=== PATIENT | female | born 1995 | race Caucasian/White ===

== ENCOUNTER → 2017-03-04 | Outpatient (CLI) | payer OTHER ==
[~2017-03-04] MED LIST: BACL10TA PO; ESCI10TA PO; HYOS0.1283 SL; KETO10TA PO; L.AC1CAP6 PO; MULT1TAB69 PO; ONDA4TAB8 PO; TRZ50T PO
--- NOTE | 2017-03-04 16:05 | Diagnostic Imaging Report ---
PROCEDURE: CT head without contrast. TECHNIQUE: Multiple contiguous axial images were obtained through the brain without the use of intravenous contrast. INDICATION: Altered mental status. FINDINGS: There is no intracranial hemorrhage, edema, or mass effect. The brain parenchyma appears unremarkable. The ventricles are not dilated. No extra-axial fluid collection is seen. The calvarium and the visualized portions of the paranasal sinuses and orbits appear grossly unremarkable. IMPRESSION: Unremarkable exam. Dictated by: Dictated on workstation # [id number]
== END ==
LOC: RAD 09:08
PROVIDERS: ATTEND Nurse Practitioner Primary Care
DX: R40.4 Transient alteration of awareness (principal); H53.9 Unspecified visual disturbance
CPT/HCPCS: 70450

== ENCOUNTER 2017-05-11 08:12 | Emergency (ER) | payer OTHER ==
[~2017-05-11] VITALS: Ht 154.9 cm; Wt 56.7 kg
--- NOTE | 2017-05-11 08:35 | ED EENT ---
History of Present Illness General Chief Complaint: Oral/Throat Problems Stated Complaint: THROAT CLOSING UP Source: patient, other Exam Limitations: no limitations History of Present Illness Time seen by provider: 08:25 Initial Comments Patient has ER by private conveyance with chief complaint of one day progressively worsening sore throat. She is able to drink but has poor appetite. She had some nausea this morning but none presently. She is not having any cough, shortness of breath, chest pain, fevers, chills. She denies rhinorrhea or ear pain. Allergies and Home Medications Allergies Coded Allergies: No Known Drug Allergies (Unverified , 04/06/15) Home Medications Baclofen 10 Mg Tablet, 10 MG PO Q6H PRN for hiccups, (Reported) Escitalopram Oxalate 10 Mg Tablet, 10 MG PO DAILY, (Reported) L.acidoph & ParacaseiB.lactis 1 Each Capsule, 1 EACH PO HS, (Reported) Multivitamin 1 Each Tablet, 1 EACH PO HS, (Reported) Trazodone Hcl 50 Mg Tab, 50 MG PO HS, (Reported) Review of Systems Constitutional: No chills, No fever Eyes: Denies Drainage, Denies Inflammation, Denies Pain Ears: Denies Dizziness, Denies Pain Nose: denies congestion, denies clear discharge Mouth: purulent discharge, other (pharyngeal erythema) Throat: denies neck stiffness, denies hoarse, painful swallowing Respiratory: No cough, No short of breath Gastrointestinal: nausea, No vomiting Past Fviwnuj-Hemlnb-Yzmggr Hx Patient Social History Alcohol Use: Denies Use Recreational Drug Use: No Smoking Status: Never a Smoker Recent Foreign Travel: No Contact w/Someone Who Travel: No Reproductive System Hx Reproductive Disorders: No Sexually Transmitted Disease: No Gastrointestinal Gastrointestinal Disorders: Chronic Constipation Physical Exam General Appearance: WD/WN, no apparent distress Eyes: bilateral eye normal inspection, bilateral eye PERRL, bilateral eye EOMI Ears: bilateral ear auricle normal, bilateral ear canal normal, bilateral ear TM normal Nose: normal inspection, No discharge Mouth/Throat: tonsillar exudate, tonsillar swelling Neck: non-tender, supple, lymphadenopathy (R), lymphadenopathy (L) (shotty bilateral) Cardiovascular: normal peripheral pulses, regular rate, rhythm Respiratory: no respiratory distress, no accessory muscle use Neurologic/Psychiatric: alert, oriented x 3 Skin: normal color, warm/dry Progress/Results/Core Measures Results/Orders Lab Results Laboratory Tests Test 05/11/17 08:22 Range/Units Group A Streptococcus Screen NEGATIVE NEGATIVE My Orders Orders - LES IQBAL Rapid Strep A Screen (05/11/17 08:28) Departure Impression Impression: Primary Impression: Acute viral pharyngitis Disposition: 01 HOME, SELF-CARE Condition: Stable Departure-Patient Inst. Decision time for Depature: 08:48 Referrals: NO,LOCAL PHYSICIAN (PCP/Family) Primary Care Physician Patient Instructions: Viral Pharyngitis (DC) Add. Discharge Instructions: Drink plenty of fluids. Use salt water gargles, honey, Chloraseptic sprays for the swollen/sore throat. Use 1000 g Tylenol, 800 mg ibuprofen for the fever, body aches/headaches. Follow up with your primary care physician if this lasts longer than 10-14 days. Vapor rubs and humidifiers will help with the congestion. All discharge instructions reviewed with patient and/or family. Voiced understanding. LES IQBAL May 11, 2017 08:35
[2017-05-11 08:54] VITALS: BP 109/60
== END 2017-05-11 08:54 | disposition home or self-care (01) ==
LOC: EDUNIT# 08:12 → ER 08:14
DX: J02.9 Acute pharyngitis, unspecified (principal)
CPT/HCPCS: 87430; 99282

== ENCOUNTER → 2020-07-13 | Outpatient (CLI) | payer OTHER ==
[~2020-07-13] MED LIST changes: +MULT-567 PO; -MULT1TAB69 PO
== END ==
LOC: LABNPT 09:44
PROVIDERS: ATTEND Family Medicine
DX: J02.9 Acute pharyngitis, unspecified (principal); Z20.822 Contact with and (suspected) exposure to COVID-19
CPT/HCPCS: 87635

== ENCOUNTER 2022-05-26 09:20 | Emergency (ER) | payer OTHER ==
[~2022-05-26] VITALS: Ht 154.9 cm; Wt 58.9 kg
[2022-05-26] MEDS ORDERED: NS IV 1000 ML 1,000 ML IV STA (09:40)
[2022-05-26 09:52] LABS: BASOPHILS % (AUTO) 1 % (0-10); BILIRUBIN,URINE NEGATIVE (NEGATIVE); CLARITY,URINE CLOUDY; COLOR,URINE YELLOW; EOSINOPHILS # (AUTO) 0.1 10^3/uL (0.0-0.3); EOSINOPHILS % (AUTO) 2 % (0-10); GLUCOSE, URINE (UA) NEGATIVE (NEGATIVE); HEMATOCRIT 41 % (35-52); KETONES,URINE TRACE (NEGATIVE); LEUKOCYTE ESTERASE ,URINE NEGATIVE (NEGATIVE); LYMPHOCYTES # (AUTO) 2.9 10^3/uL (1.0-4.0); LYMPHOCYTES % (AUTO) 44 % (12-44); MEAN CORPUSCULAR HEMOGLOBIN 31 pg (25-34); MEAN CORPUSCULAR HGB CONC 34 g/dL (32-36); MEAN CORPUSCULAR VOLUME 89 fL (80-99); MEAN PLATELET VOLUME 10.5 fL (9.0-12.2); MONOCYTES # (AUTO) 0.6 10^3/uL (0.0-1.0); MONOCYTES % (AUTO) 10 % (0-12); NEUTROPHILS # (AUTO) 2.9 10^3/uL (1.8-7.8); NEUTROPHILS % (AUTO) 44 % (42-75); NITRITE,URINE NEGATIVE (NEGATIVE); PLATELET COUNT 280 10^3/uL (130-400); PROTEIN,URINE TRACE (NEGATIVE); WHITE BLOOD COUNT 6.5 10^3/uL (4.3-11.0)
[2022-05-26 10:00] LABS: BACTERIA,URINE TRACE /HPF; SQUAMOUS EPITHELIAL CELL,UR 0-2 /HPF
[2022-05-26 10:02] LABS: ALBUMIN 4.3 GM/DL (3.2-4.5); POTASSIUM 3.3 MMOL/L (3.6-5.0)
--- NOTE | 2022-05-26 10:03 | ED Abdominal Pain ---
General Chief Complaint: Abdominal/GI Problems Stated Complaint: SEVERE ABDOMINAL PAIN Source of Information: Patient Exam Limitations: No Limitations History of Present Illness Date Seen by Provider: May 26, 2022 Time Seen by Provider: 09:31 Initial Comments Here with right lower quadrant abdominal pain that radiated to the right flank and was 10 out of 10 at its worse and aching and now only 8 out of 10. She had similar feeling on Friday that she rested through and it went away yesterday but came back this morning. Did have some nausea twice this morning without significant vomiting. Denies diarrhea. Last normal bowel movement yesterday. Denies vaginal discharge or bleeding. Denies dysuria. No reports of fever or chills. She is not sure if she is or not although they have been trying for 2-1/2 years unsuccessfully so she does not believe she is. Last normal menstrual period was on 04/28/2022. Timing/Duration: 2-3 Days, Changing Over Time, Intermittent Severity/Quality: Moderate, Severe, Aching Location: RLQ Radiation: Flank (Right) Activities at Onset: None Modifying Factors: Worsens With Movement Associated Symptoms: No Back Pain, No Chest Pain, No Fever/Chills; Nause a/Vomiting; No Swelling/Mass in Abdomen, No Weakness Allergies and Home Medications Allergies Coded Allergies: No Known Drug Allergies (Unverified , 04/06/15) Patient Home Medication List Home Medication List Reviewed: Yes Baclofen (Baclofen) 10 Mg Tablet, 10 MG PO Q6H PRN for hiccups, (Reported) Entered as Reported by: BETTY KUMAR on 01/25/16 1041 Escitalopram Oxalate (Lexapro) 10 Mg Tablet, 10 MG PO DAILY, (Reported) Entered as Reported by: BETTY KUMAR on 01/25/16 1041 L.acidoph & Paracasei,B.lactis (Probiotic) 1 Each Capsule, 1 EACH PO HS, (Reported) Entered as Reported by: BETTY KUMAR on 01/25/16 1041 Multivitamin (Multivitamins) 1 Each Tablet, 1 EACH PO HS, (Reported) Entered as Reported by: BETTY KUMAR on 01/25/16 1041 Trazodone Hcl (Desyrel 50 Mg) 50 Mg Tab, 50 MG PO HS, (Reported) Entered as Reported by: GISEL MERCADO on 04/06/15 0421 Review of Systems Review of Systems Constitutional: see HPI; No chills, No fever EENTM: No Symptoms Reported Respiratory: Denies Cough, Denies Shortness of Air Cardiovascular: No Symptoms Reported Gastrointestinal: Abdominal Pain, Nausea Genitourinary: Denies Burning, Denies Discharge; Flank Pain; Denies Pain Musculoskeletal: no symptoms reported Past Iskaywj-Qhnbnr-Djwswl Hx Patient Social History Tobacco Use?: No Substance use?: No Alcohol Use?: No Past Medical History Surgeries: No Respiratory: No Cardiac: No Neurological: No Last Menstrual Period: Apr 28, 2022 Reproductive Disorders: No Sexually Transmitted Disease: No Gastrointestinal: Yes Chronic Constipation Psychosocial: Yes Anxiety Family Medical History Reviewed Nursing Family Hx No Pertinent Family Hx Physical Exam Vital Signs Vital Signs - First Documented 05/26/22 09:30 Temp 36.8 Pulse 104 Resp 16 B/P (MAP) 128/79 (95) Pulse Ox 100 O2 Delivery Room Air Capillary Refill : Height/Weight/BMI Height: 5'1.00" Weight: 125lbs. 0.0oz. [id number]; 21.7 BMI Method:Stated General Appearance: WD/WN, no apparent distress HEENT: PERRL/EOMI, pharynx normal Neck: full range of motion, supple Respiratory: lungs clear, normal breath sounds Cardiovascular: no murmur, tachycardia Gastrointestinal: non tender, soft, other (Reports right lower quadrant and right flank abdominal pain but not changed with palpation and seems to be persistent and continuous despite palpation.) Extremities: non-tender, normal inspection Back: normal inspection, no CVA tenderness, no vertebral tenderness Neurologic/Psychiatric: alert, oriented x 3 Skin: normal color, warm/dry Progress/Results/Core Measures Results/Orders Lab Results Laboratory Tests Test 05/26/22 09:47 Range/Units White Blood Count 6.5 4.3-11.0 10^3/uL Red Blood Count 4.59 3.80-5.11 10^6/uL Hemoglobin 14.0 11.5-16.0 g/dL Hematocrit 41 35-52 % Mean Corpuscular Volume 89 80-99 fL Mean Corpuscular Hemoglobin 31 25-34 pg Mean Corpuscular Hemoglobin Concent 34 32-36 g/dL Red Cell Distribution Width 11.8 10.0-14.5 % Platelet Count 280 130-400 10^3/uL Mean Platelet Volume 10.5 9.0-12.2 fL Immature Granulocyte % (Auto) 0 % Neutrophils (%) (Auto) 44 42-75 % Lymphocytes (%) (Auto) 44 12-44 % Monocytes (%) (Auto) 10 0-12 % Eosinophils (%) (Auto) 2 0-10 % Basophils (%) (Auto) 1 0-10 % Neutrophils # (Auto) 2.9 1.8-7.8 10^3/uL Lymphocytes # (Auto) 2.9 1.0-4.0 10^3/uL Monocytes # (Auto) 0.6 0.0-1.0 10^3/uL Eosinophils # (Auto) 0.1 0.0-0.3 10^3/uL Basophils # (Auto) 0.0 0.0-0.1 10^3/uL Immature Granulocyte # (Auto) 0.0 0.0-0.1 10^3/uL Urine Color YELLOW Urine Clarity CLOUDY Urine pH 6.0 5-9 Urine Specific Valentine >=1.030 1.016-1.022 Urine Protein TRACE H NEGATIVE Urine Glucose (UA) NEGATIVE NEGATIVE Urine Ketones TRACE H NEGATIVE Urine Nitrite NEGATIVE NEGATIVE Urine Bilirubin NEGATIVE NEGATIVE Urine Urobilinogen 0.2 < = 1.0 MG/DL Urine Leukocyte Esterase NEGATIVE NEGATIVE Urine RBC (Auto) 3+ H NEGATIVE Urine RBC 10-25 H /HPF Urine WBC NONE /HPF Urine Squamous Epithelial Cells 0-2 /HPF Urine Crystals NONE /LPF Urine Bacteria TRACE /HPF Urine Casts NONE /LPF Urine Mucus MODERATE H /LPF Urine Culture Indicated NO Sodium Level 138 135-145 MMOL/L Potassium Level 3.3 L 3.6-5.0 MMOL/L Chloride Level 107 98-107 MMOL/L Carbon Dioxide Level 19 L 21-32 MMOL/L Anion Gap 12 5-14 MMOL/L Blood Urea Nitrogen 11 7-18 MG/DL Creatinine 0.78 0.60-1.30 MG/DL Estimat Glomerular Filtration Rate 107 BUN/Creatinine Ratio 14 Glucose Level 110 H 70-105 MG/DL Calcium Level 8.9 8.5-10.1 MG/DL Corrected Calcium 8.7 8.5-10.1 MG/DL Total Bilirubin 0.7 0.1-1.0 MG/DL Aspartate Amino Transf (AST/SGOT) 19 5-34 U/L Alanine Aminotransferase (ALT/SGPT) 18 0-55 U/L Alkaline Phosphatase 50 40-136 U/L C-Reactive Protein High Sensitivity 0.09 0.00-0.50 MG/DL Total Protein 7.4 6.4-8.2 GM/DL Albumin 4.3 3.2-4.5 GM/DL My Orders Orders - GRAHAM JOSE MD Cbc With Automated Diff (05/26/22 09:40) Comprehensive Metabolic Panel (05/26/22 09:40) Hs C Reactive Protein (05/26/22 09:40) Ua Culture If Indicated (05/26/22 09:40) Urine Bedside (05/26/22 09:40) Ns Iv 1000 Ml (Sodium Chloride 0.9%) (05/26/22 09:40) Ed Iv/Invasive Line Start (05/26/22 09:40) Fentanyl Inj (Sublimaze Injection) (05/26/22 10:07) Ketorolac Injection (Toradol Injection) (05/26/22 10:07) Ct Abd/Pelvis Wo(Kidney Stone) (05/26/22 10:08) Vital Signs/I&O 05/26/22 09:30 Temp 36.8 Pulse 104 Resp 16 B/P (MAP) 128/79 (95) Pulse Ox 100 O2 Delivery Room Air Progress Progress Note : Progress Note Seen and evaluated. IV, CBC, CMP, CRP, UA and UCG ordered. Normal saline 1 L bolus. Patient declined pain or nausea medicine at this time. Anticipate CT scan of the abdomen and pelvis but we are awaiting UA to determine blood in the urine as to the type of CT study we would get. She does have history of kidney stones and states this does not feel like that. Monitor patient. Differential diagnosis includes appendicitis, kidney stone, UTI, ovarian cyst or other intra-abdominal pathology. 1100: I have reviewed CT scan. I do note for millimeter stone in the right ureter at the level of L4 on my interpretation. Reviewed radiology report which agrees and shows no other pathology. I did discuss findings with the patient and family. She did receive Toradol 30 mg IV as well as fentanyl 25 mcg IV and she is doing much better now. I did discuss with her the importance of follow-up with urology and she will find urologist. She follows with Dr. Flynn as well so I will send a chart copy over to her. She will continue outpatient ibuprofen and acetaminophen as needed. I did discuss prescriptions and OTC med changes with prescriptions. Discharged home with return precautions. Patient and family verbalized understanding of instructions and agreement with plan. Diagnostic Imaging Diagonstic Imaging: CT Plain Films/CT/US/NM/MRI: abdomen, pelvis Comments [facility]. [address], [place] NAME: PRIYANKA GARCIA [facility] REC#: [id number] PT STATUS: REG ER : 1995 PHYSICIAN: GRAHAM JOSE MD ADMIT DATE: 05/26/22/ER Draft Date of Exam:05/26/22 CT ABD/PELVIS WO(KIDNEY STONE) PROCEDURE: CT urinary tract, rule out kidney stone. TECHNIQUE: Multiple contiguous axial images were obtained through the abdomen and pelvis without the use of intravenous contrast. Auto Exposure Controls were utilized during the CT exam to meet ALARA standards for radiation dose reduction. INDICATION: Flank pain, no lateralizing history provided. FINDINGS: There is a calculus in the proximal right ureter at the junction of its proximal and middle one/thirds at the L4 superior endplate level in this patient who is presumed to have right flank pain. This calculus results in mild upstream hydroureteronephrosis. The stone in axial plane measures a maximal dimension of 4.2 mm and in the coronal reconstructions is about 5.6 mm cephalocaudal in length. No additional radiodense urinary tract calculi. The adrenals, liver, gallbladder, bile ducts, spleen, and pancreas are unremarkable. The aorta is nonaneurysmal. There is no appendicitis, diverticulitis, ileus, or bowel obstruction. The uterus and adnexa are unremarkable. There is trace free fluid in the cul-de-sac within normal physiologic limits. The urinary bladder is normal. IMPRESSION: 1. A stone in the proximal right ureter results in only mild upstream hydroureteronephrosis with stone dimensions as above. 2. No other radiodense urinary tract calculi and no other acute appearing abnormality. Dictated on workstation # [id number] Dict: 05/26/22 1027 Trans: 05/26/22 1043 [id number] Interpreted by: CAROL ANN PATRICIA Electronically signed by: Reviewed: Reviewed by Me Departure Impression Primary Impression: Right ureteral stone Disposition: HOME, SELF-CARE Condition: Stable Departure-Patient Inst. Decision time for Depature: 11:06 Referrals: SIMRAN FLYNN MD NO,LOCAL PHYSICIAN (PCP) Primary Care Physician Patient Instructions: Kidney Stones in Adults, How to Strain Your Urine Add. Discharge Instructions: All discharge instructions reviewed with patient and/or family. Voiced understanding. Strain your urine to check for stone. Drink plenty of fluids. You may take ibuprofen 600 mg every 8 hours as needed for pain and you should probably schedule that for the next 3 days and then as needed. You may take prescribed pain medicine as directed. If you are not taking the prescribed pain medicine, you may take Tylenol/acetaminophen 1000 mg every 6-8 hours as needed for pain. Do not take that with the hydrocodone containing compound as both have acetaminophen in them. It is important that you follow-up with a urologist. You may follow-up with urologist of your choosing or discussed with your doctor for referral to urologist. Return for worse pain, fever, vomiting, weakness, breathing problems or other concerns as needed. Scripts Hydrocodone Bit/Acetaminophen (HYDROcodone/APAP 5 MG/325 MG TAB) 1 Tab Tab 1 TAB PO Q6H for Pain, #12 TAB 0 Refills Prov: GRAHAM JOSE MD 05/26/22 Cephalexin (Cephalexin) 500 Mg Tablet 500 MG PO BID, #14 TAB 0 Refills Prov: GRAHAM JOSE MD 05/26/22 Tamsulosin HCl (Flomax) 0.4 Mg Cap 0.4 MG PO DAILY for 14 Days, #14 CAP 0 Refills Prov: GRAHAM JOSE MD 05/26/22 Copy Copies To 1: SIMRAN FLYNN MD, TIMOTHY D MD May 26, 2022 10:03
[2022-05-26 10:04] LABS: CALCIUM 8.9 MG/DL (8.5-10.1)
[2022-05-26 10:05] LABS: TOTAL PROTEIN 7.4 GM/DL (6.4-8.2)
[2022-05-26 10:07] LABS: BILIRUBIN,TOTAL 0.7 MG/DL (0.1-1.0)
[2022-05-26] MEDS ORDERED: KETOROLAC 30 MG/ML VIAL IVP STA (10:07)
[2022-05-26] MEDS ORDERED: fentaNYL INJ 100 MCG/2 ML AMP IVP STA (10:07)
[2022-05-26 10:08] LABS: CREATININE SERUM 0.78 MG/DL (0.60-1.30)
--- NOTE | 2022-05-26 10:45 | Diagnostic Imaging Report ---
PROCEDURE: CT urinary tract, rule out kidney stone. TECHNIQUE: Multiple contiguous axial images were obtained through the abdomen and pelvis without the use of intravenous contrast. Auto Exposure Controls were utilized during the CT exam to meet ALARA standards for radiation dose reduction. INDICATION: Flank pain, no lateralizing history provided. FINDINGS: There is a calculus in the proximal right ureter at the junction of its proximal and middle one/thirds at the L4 superior endplate level in this patient who is presumed to have right flank pain. This calculus results in mild upstream hydroureteronephrosis. The stone in axial plane measures a maximal dimension of 4.2 mm and in the coronal reconstructions is about 5.6 mm cephalocaudal in length. No additional radiodense urinary tract calculi. The adrenals, liver, gallbladder, bile ducts, spleen, and pancreas are unremarkable. The aorta is nonaneurysmal. There is no appendicitis, diverticulitis, ileus, or bowel obstruction. The uterus and adnexa are unremarkable. There is trace free fluid in the cul-de-sac within normal physiologic limits. The urinary bladder is normal. IMPRESSION: 1. A stone in the proximal right ureter results in only mild upstream hydroureteronephrosis with stone dimensions as above. 2. No other radiodense urinary tract calculi and no other acute appearing abnormality. Dictated by: Dictated on workstation # [id number]
[2022-05-26] MEDS ORDERED: ACHD5005 PO (11:08)
[2022-05-26] MEDS ORDERED: CEPH500T PO (11:08)
[2022-05-26] MEDS ORDERED: TMSL.4C PO (11:08)
[2022-05-26 11:25] VITALS: BP 105/52
== END 2022-05-26 11:25 | disposition home or self-care (01) ==
LOC: EDUNIT# 09:20 → ER 09:21
DX: N20.1 Calculus of ureter (principal)
CPT/HCPCS: 36415; 74176; 80053; 81000; 84703; 85025; 86141

== ENCOUNTER 2022-06-02 08:10 | Emergency (ER) | payer OTHER ==
[~2022-06-02] VITALS: Ht 155 cm; Wt 59.0 kg
[~2022-06-02 08:10] MED LIST changes: +ACHD5005 PO; +CEPH500T PO; +TMSL.4C PO
[2022-06-02] MEDS ORDERED: KETOROLAC 15 MG/ML VIAL IVP ONE (09:00)
[2022-06-02] MEDS ORDERED: NS IV 1000 ML 1,000 ML IV SCH (09:00)
--- NOTE | 2022-06-02 09:18 | ED Abdominal Pain ---
General Chief Complaint: Abdominal/GI Problems Stated Complaint: SEVERE ABDOMINAL PAIN Nursing Triage Note: Pt ambulates to ER with c/o severe abdominal pain. Patient states she was here last week with a kidney stone and has not passed the stone yet, but pain from last week had stopped so she assumed she had just missed it. The pain started back up again 0450 today. Patient took a hydrocodone at 0720 for the pain but it did not help much then threw up 40 minutes later. Source of Information: Patient (KENNETH ALVARENGA) History of Present Illness Date Seen by Provider: Jun 02, 2022 Time Seen by Provider: 08:30 Initial Comments 26yo F with h/o kidneys stones and GERD presents to the ED with c/o of constant, stabbing pain in her R flank that radiates to her lower abd that started this morning. Pt was seen at this ED on 05/26 and was diagnosed with 4.2mm R ureteral stone and sent home with pain medications and calculi strainer. Pt states that her pain completely resolved within a couple of days. Pt had been using the calculi strainer up until Friday or Friday when she started her period and was unable to clearly strain urine. Pt denies seeing any stones in strainer prior to discontinuing use. At ~5am this morning, pt states that began experiencing severe R flank pain with radiation to her lower abd, specifically the suprapubic region. Pt states that pain is constant but comes in waves in which it becomes a 10/10 and then back down to a 8/10. Pt characterizes R flank pain as stabbing and lower abd pain as pressure with intermittent stabbing pain. Pt notes associated lightheadedness, nausea, chills, and tremors when pain is at it's worst. Pt states that this pain is similar to the pain she experienced 1 week ago when she was diagnosed with a kidney stone in this ED. Pt took a hydrocodone to try and relieve her pain but states only mild relief of her suprapubic pain.~40 minutes after taking the hydrocodone, she had an episode of vomiting containing bile when the pain became severe again. Pt states that pain is similar to last week when she was diagnosed with the kidney stone, but is now constant and present in her lower abd whereas before the pain was localized to her flanks and came in waves. Pt also notes that she experienced one episode of diarrhea after the pain began but notes that she thinks she became anxious about the pain and normally has diarrhea with her anxiety. Pt states that she continued to void and have good output. Pt does note that the last time she tried to void she was unable to "bear down" but states it might be due to her not having anything to void. Pt is currently on her period and states that it has been normal. Pt denies fever, hematuria, SOB, CP, blood in stool, dysuria, ALICIA, and dizziness. (KENNETH ALVARENGA) Allergies and Home Medications Allergies Coded Allergies: No Known Drug Allergies (Unverified , 04/06/15) Patient Home Medication List Home Medication List Reviewed: Yes (KENNETH ALVARENGA) Baclofen (Baclofen) 10 Mg Tablet, 10 MG PO Q6H PRN for hiccups, (Reported) Entered as Reported by: BETTY KUMAR on 01/25/16 1041 Cephalexin (Cephalexin) 500 Mg Tablet, 500 MG PO BID Prescribed by: GRAHAM JOSE on 05/26/22 1108 Escitalopram Oxalate (Lexapro) 10 Mg Tablet, 10 MG PO DAILY, (Reported) Entered as Reported by: BETTY KUMAR on 01/25/16 1041 Hydrocodone Bit/Acetaminophen (HYDROcodone/APAP 5 MG/325 MG TAB) 1 Tab Tab, 1 TAB PO Q6H Prescribed by: GRAHAM JOSE on 05/26/22 1109 L.acidoph & Paracasei,B.lactis (Probiotic) 1 Each Capsule, 1 EACH PO HS, (Reported) Entered as Reported by: BETTY KUMAR on 01/25/16 1041 Multivitamin (Multivitamins) 1 Each Tablet, 1 EACH PO HS, (Reported) Entered as Reported by: BETTY KUMAR on 01/25/16 1041 Tamsulosin HCl (Flomax) 0.4 Mg Cap, 0.4 MG PO DAILY Prescribed by: GRAHAM JOSE on 05/26/22 1108 Trazodone Hcl (Desyrel 50 Mg) 50 Mg Tab, 50 MG PO HS, (Reported) Entered as Reported by: GISEL MERCADO on 04/06/15 0421 Review of Systems Review of Systems Constitutional: chills (with severe pain ); No dizziness, No fever EENTM: No Symptoms Reported Respiratory: Denies Cough, Denies Shortness of Air Cardiovascular: Denies Chest Pain; Lightheadedness (with severe pain) Gastrointestinal: Abdominal Pain (lower abd, worse in suprapubic region), Diarrhea (x1), Vomiting (x1) Genitourinary: Denies Burning; Flank Pain (R); Denies Hematuria Musculoskeletal: No gout, No joint pain Skin: No change in color, No change in hair/nails Psychiatric/Neurological: Denies Anxiety, Denies Depressed, Denies Headache Endocrine: No Symptoms Reported Hematologic/Lymphatic: No Symptoms Reported (KENNETH ALVARENGA) Past Eutlokt-Nqtdkq-Wxklyo Hx Patient Social History Tobacco Use?: No Substance use?: No Alcohol Use?: No (KENNETH ALVARENGA) Immunizations Up To Date First/Initial COVID19 Vaccinat: 2020 Second COVID19 Vaccination Kun: 2020 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[employer] (KENNETH ALVARENGA) Past Medical History Surgery/Hospitalization HX: ANXIETY Surgeries: No Respiratory: No Cardiac: Yes (INAPPROPRIATE SINUS TACHYCARDIA) Neurological: No Reproductive Disorders: No Sexually Transmitted Disease: No Genitourinary: Yes Kidney Stones Gastrointestinal: Yes Chronic Constipation Musculoskeletal: No Endocrine: No HEENT: No Cancer: No Psychosocial: Yes Anxiety, Depression Integumentary: No (KENNETH ALVARENGA) Family Medical History No Pertinent Family Hx, Cancer (Paternal grandmother-breast cancer; Maternal pkfqephuukna-wxk-wqpjgjmp lymphoma; maternal grandmother-multiple myeloma), Other Conditions/Hx (Father-angioedema; mother-hypothyroidism) (KENNETH ALVARENGA) Physical Exam Vital Signs Vital Signs - First Documented 06/02/22 08:26 Temp 36.1 Pulse 91 Resp 20 B/P (MAP) 140/95 (110) Pulse Ox 98 O2 Delivery Room Air (JAYLON ROMERO DO) Vital Signs Capillary Refill : Less Than 3 Seconds (KENNETH ALVARENGA) Height/Weight/BMI Height: 5'1.00" Weight: 125lbs. 0.0oz. 56.143549yd; 24.00 BMI Method:Stated General Appearance: WD/WN, no apparent distress (has periods where pain becomes more severe and becomes visibly uncomfortable in bed, moving around and hunching over slightly ) HEENT: PERRL/EOMI Respiratory: lungs clear ("whooshing" sound noted over L and R mid-base; L>R), no respiratory distress, no accessory muscle use Cardiovascular: tachycardia (slightly irregular; possible bowel sounds ) Gastrointestinal: non tender (no change in pain with palpation; pain continues independent of palpation), soft Extremities: no pedal edema, no calf tenderness Back: no CVA tenderness; No muscle spasm Neurologic/Psychiatric: alert, oriented x 3 Skin: normal color, warm/dry (KENNETH ALVARENGA) Progress/Results/Core Measures Results/Orders Lab Results Laboratory Tests Test 06/02/22 09:18 06/02/22 10:07 Range/Units Urine Color YELLOW Urine Clarity CLEAR Urine pH 6.0 5-9 Urine Specific Merrill 1.025 H 1.016-1.022 Urine Protein TRACE H NEGATIVE Urine Glucose (UA) NEGATIVE NEGATIVE Urine Ketones NEGATIVE NEGATIVE Urine Nitrite NEGATIVE NEGATIVE Urine Bilirubin NEGATIVE NEGATIVE Urine Urobilinogen 0.2 < = 1.0 MG/DL Urine Leukocyte Esterase NEGATIVE NEGATIVE Urine RBC (Auto) 3+ H NEGATIVE Urine RBC 5-10 H /HPF Urine WBC NONE /HPF Urine Squamous Epithelial Cells RARE /HPF Urine Crystals NONE /LPF Urine Bacteria NEGATIVE /HPF Urine Casts NONE /LPF Urine Mucus NEGATIVE /LPF Urine Culture Indicated NO White Blood Count 10.8 4.3-11.0 10^3/uL Red Blood Count 4.53 3.80-5.11 10^6/uL Hemoglobin 13.9 11.5-16.0 g/dL Hematocrit 41 35-52 % Mean Corpuscular Volume 90 80-99 fL Mean Corpuscular Hemoglobin 31 25-34 pg Mean Corpuscular Hemoglobin Concent 34 32-36 g/dL Red Cell Distribution Width 12.0 10.0-14.5 % Platelet Count 322 130-400 10^3/uL Mean Platelet Volume 10.6 9.0-12.2 fL Immature Granulocyte % (Auto) 0 % Neutrophils (%) (Auto) 87 H 42-75 % Lymphocytes (%) (Auto) 6 L 12-44 % Monocytes (%) (Auto) 5 0-12 % Eosinophils (%) (Auto) 0 0-10 % Basophils (%) (Auto) 1 0-10 % Neutrophils # (Auto) 9.4 H 1.8-7.8 10^3/uL Lymphocytes # (Auto) 0.7 L 1.0-4.0 10^3/uL Monocytes # (Auto) 0.6 0.0-1.0 10^3/uL Eosinophils # (Auto) 0.0 0.0-0.3 10^3/uL Basophils # (Auto) 0.1 0.0-0.1 10^3/uL Immature Granulocyte # (Auto) 0.0 0.0-0.1 10^3/uL Neutrophils % (Manual) 89 % Lymphocytes % (Manual) 8 % Monocytes % (Manual) 3 % Eosinophils % (Manual) 0 % Basophils % (Manual) 0 % Band Neutrophils 0 % Blood Morphology Comment NORMAL Sodium Level 140 135-145 MMOL/L Potassium Level 3.9 3.6-5.0 MMOL/L Chloride Level 108 H 98-107 MMOL/L Carbon Dioxide Level 22 21-32 MMOL/L Anion Gap 10 5-14 MMOL/L Blood Urea Nitrogen 12 7-18 MG/DL Creatinine 0.86 0.60-1.30 MG/DL Estimat Glomerular Filtration Rate 95 BUN/Creatinine Ratio 14 Glucose Level 105 70-105 MG/DL Calcium Level 9.4 8.5-10.1 MG/DL Corrected Calcium 9.0 8.5-10.1 MG/DL Total Bilirubin 0.5 0.1-1.0 MG/DL Aspartate Amino Transf (AST/SGOT) 19 5-34 U/L Alanine Aminotransferase (ALT/SGPT) 15 0-55 U/L Alkaline Phosphatase 57 40-136 U/L Total Protein 7.6 6.4-8.2 GM/DL Albumin 4.5 3.2-4.5 GM/DL Lipase 63 8-78 U/L Serum Test, Qualitative NEGATIVE NEGATIVE (HEATHER,JAYLON L DO) My Orders Orders - HEATHER,JAYLON L DO Lipase (06/02/22 08:56) Ua Culture If Indicated (06/02/22 08:56) Ct Abd/Pelvis Wo(Kidney Stone) (06/02/22 08:56) Cbc With Automated Diff (06/02/22 08:56) Comprehensive Metabolic Panel (06/02/22 08:56) Ketorolac Injection (Toradol Injection) (06/02/22 09:00) Ns Iv 1000 Ml (Sodium Chloride 0.9%) (06/02/22 09:00) Hcg,Qualitative Serum (06/02/22 08:58) Manual Differential (06/02/22 10:07) Oxycodone/Apap 7.5/325mg Tab (Percocet (06/02/22 14:45) Fentanyl Inj (Sublimaze Injection) (06/02/22 14:45) (JAYLON ROMERO DO) Medications Given in ED Current Medications Medications Dose Ordered Sig/Carly Route Start Time Stop Time Status Last Admin Dose Admin Fentanyl Citrate 75 mcg ONCE ONCE IM 06/02/22 14:45 06/02/22 14:46 DC 06/02/22 14:54 75 MCG (JAYLON ROMERO DO) Vital Signs/I&O 06/02/22 06/02/22 08:26 15:00 Temp 36.1 Pulse 91 79 Resp 20 98 B/P (MAP) 140/95 (110) 117/79 Pulse Ox 98 O2 Delivery Room Air Room Air (JAYLON ROMERO DO) Blood Pressure Mean: 110 Departure Communication (Admissions) Patient is hemodynamically stable. We are unfortunately unable to gain IV access. Renal function on her labs is unremarkable. Her CT scan shows that the 5 mm stone in right ureter is unchanged from previous outside of some worsening hydronephrosis, hydroureter. No evidence for infection in her urine and she is afebrile. Initially spoke to Mike and Kayla in [place] both of which were at capacity. I called [facility]. There is significant delay for callback from urology, nearly an hour and a half. Once they did call back they excepted the patient and we are awaiting bed assignment at this time. Accepting doctor is Dr. Anand, hospitalist. I also spoke with the urologist on the phone who agrees with current care. Patient will travel via private vehicle upon obtaining a bed assignment. She is advised not to eat or drink anything in r oute and to go straight there to the registration desk. She states understanding. Advised her that the urologist recommended that it would likely not be until tomorrow that she have a procedure however he wanted to evaluate when she got there and make this determination before letting her eat. 1405:We have received a room #. Pending transfer. (JAYLON ROMERO DO) Impression Primary Impression: Right ureteral stone Disposition: XFER SHT-TRM HOSP Condition: Stable Departure-Patient Inst. Referrals: NO,LOCAL PHYSICIAN (PCP/Family) Primary Care Physician KENNETH ALVARENGA Jun 02, 2022 09:18 JAYLON ROMERO DO Jun 02, 2022 13:09
[2022-06-02 09:28] LABS: BILIRUBIN,URINE NEGATIVE (NEGATIVE); CLARITY,URINE CLEAR; COLOR,URINE YELLOW; GLUCOSE, URINE (UA) NEGATIVE (NEGATIVE); KETONES,URINE NEGATIVE (NEGATIVE); LEUKOCYTE ESTERASE ,URINE NEGATIVE (NEGATIVE); NITRITE,URINE NEGATIVE (NEGATIVE); PROTEIN,URINE TRACE (NEGATIVE)
[2022-06-02 09:50] LABS: BACTERIA,URINE NEGATIVE /HPF; SQUAMOUS EPITHELIAL CELL,UR RARE /HPF
[2022-06-02 10:18] LABS: BASOPHILS # (AUTO) 0.1 10^3/uL (0.0-0.1); BASOPHILS % (AUTO) 1 % (0-10); EOSINOPHILS % (AUTO) 0 % (0-10); HEMATOCRIT 41 % (35-52); HEMOGLOBIN 13.9 g/dL (11.5-16.0); LYMPHOCYTES # (AUTO) 0.7 10^3/uL (1.0-4.0); LYMPHOCYTES % (AUTO) 6 % (12-44); MEAN CORPUSCULAR HEMOGLOBIN 31 pg (25-34); MEAN CORPUSCULAR HGB CONC 34 g/dL (32-36); MEAN CORPUSCULAR VOLUME 90 fL (80-99); MEAN PLATELET VOLUME 10.6 fL (9.0-12.2); MONOCYTES # (AUTO) 0.6 10^3/uL (0.0-1.0); MONOCYTES % (AUTO) 5 % (0-12); NEUTROPHILS # (AUTO) 9.4 10^3/uL (1.8-7.8); NEUTROPHILS % (AUTO) 87 % (42-75); PLATELET COUNT 322 10^3/uL (130-400); WHITE BLOOD COUNT 10.8 10^3/uL (4.3-11.0)
[2022-06-02 10:47] LABS: ALBUMIN 4.5 GM/DL (3.2-4.5); BILIRUBIN,TOTAL 0.5 MG/DL (0.1-1.0); CALCIUM 9.4 MG/DL (8.5-10.1); CREATININE SERUM 0.86 MG/DL (0.60-1.30); POTASSIUM 3.9 MMOL/L (3.6-5.0); TOTAL PROTEIN 7.6 GM/DL (6.4-8.2)
--- NOTE | 2022-06-02 10:49 | Diagnostic Imaging Report ---
CT ABD/PELVIS WO(KIDNEY STONE) TECHNIQUE: Unenhanced CT imaging of the abdomen and pelvis was performed. 2-D reformats are created and submitted for interpretation. Automatic exposure controls were utilized to optimize patient dose. INDICATION: Continued flank pain. Recent right ureteral stone. COMPARISON: 05/26/2022 FINDINGS: Lower chest: The lung bases are clear. No pericardial or pleural effusion. Peritoneum: No free intraperitoneal air or fluid. Liver and biliary system: Unenhanced liver is normal. The gallbladder is normal. No biliary duct dilation. Spleen and Pancreas: Spleen is normal. Unenhanced pancreas is grossly normal. Adrenals: Normal. tract: Unchanged position and appearance of the 5 mm stone in the mid right ureter. Mild right hydronephrosis and proximal hydroureter are unchanged. No new renal or ureteral stones on either side. Uterus and ovaries are normal in appearance. GI tract: Stomach is decompressed. No bowel obstruction. No pericolonic inflammatory changes. Appendectomy. Vasculature and Lymph nodes: Normal caliber aorta. No abdominal or pelvic lymphadenopathy. Musculoskeletal: No concerning osseous lesion. IMPRESSION: 1. Stable position of the 5 mm stone in the mid right ureter. Resultant mild right hydronephrosis is unchanged. Dictated by: Dictated on workstation # [id number]
[2022-06-02 10:58] LABS: BAND NEUTROPHILS 0 %; BASOPHILS % (MANUAL) 0 %; EOSINOPHILS % (MANUAL) 0 %; LYMPHOCYTES % (MANUAL) 8 %; MONOCYTES % (MANUAL) 3 %; NEUTROPHILS % (MANUAL) 89 %; RBC MORPH NORMAL
[2022-06-02] MEDS ORDERED: fentaNYL INJ 100 MCG/2 ML AMP IM ONE (14:45)
[2022-06-02] MEDS ORDERED: oxyCODONE/APAP 7.5-325 MG (PERCOCET 7.5) TABLET PO ONE (14:45)
[2022-06-02 15:00] VITALS: BP 117/79
== END 2022-06-02 14:40 | disposition short-term general hospital (02) ==
LOC: EDUNIT# 08:10 → ER 08:11
DX: N13.2 Hydronephrosis with renal and ureteral calculous obstruction (principal); Z32.02 Encounter for pregnancy test, result negative
CPT/HCPCS: 36415; 74176; 80053; 81000; 83690; 84703; 85007; 85027; 99284

== ENCOUNTER → 2022-10-05 | Outpatient (CLI) | payer OTHER | LOC: LAB 15:11 | PROVIDERS: ATTEND Obstetrics & Gynecology | DX: Z32.01 Encounter for pregnancy test, result positive (principal) | CPT/HCPCS: 36415; 84702 ==

== ENCOUNTER → 2023-01-31 | Outpatient (CLI) | payer OTHER ==
--- NOTE | 2023-01-31 14:39 | Diagnostic Imaging Report ---
INDICATION: TECHNIQUE: Multiple real-time grayscale images were obtained over the gravid uterus. COMPARISON: None FINDINGS: Biometrical measurements are as follows: Biparietal 5.17 cm, age 21 weeks 5 days. Head circumference 18.96 cm, age 21 weeks 2 days. Abdominal circumference 15.67 cm, age 20 weeks 6 days. Femur length 3.35 cm, age 20 weeks 4 days. Sonographic estimate age: 21 weeks 1 days. Sonographic estimated date of delivery: 06/12/2023. Estimated Weight: 376 gm (+/- 55 gm). LMP percentile: 26%. heart rate: 138 beats per minute. number: 1 of 1. IMPRESSION: Single live intrauterine measuring at 21 weeks and 1 day corresponding with gestational age with VENITA of 06/12/2023. weight is 376 g corresponding to 26 percentile. Normal amniotic fluid with an index of 16.3 cm. Dictated by: Dictated on workstation # [id number]
== END ==
LOC: RAD 10:00
PROVIDERS: ATTEND Obstetrics & Gynecology
DX: Z36.9 Encounter for antenatal screening, unspecified (principal)
CPT/HCPCS: 76805